=== PATIENT | male | born 1960 | race Caucasian/White ===

== ENCOUNTER 2018-09-16 21:51 | Emergency (ER) | payer OTHER ==
--- NOTE | 2018-09-16 22:56 | EDPHY ---
H & P Smoking Status: Never smoked Time Seen by Provider: 09/16/18 22:02 HPI/ROS: This patient noticed a fullness to his right popliteal region slight discomfort over the past 24 hr the prompted a visit to rule out DVT. He describes intermittent popliteal pain particularly when he flexes his knee. His recent history is notable for a right total hip replacement on September 04 without complications. He has a history of atrial fibrillation as well and takes baby aspirin but no other anticoagulation. He denies any other associated symptoms and came in with his by private vehicle for evaluation tonight. ROS: Constitutional: No fatigue. No fevers. HEENT: No complaints Pulmonary: No dyspnea or pleuritic pain Cardiovascular: No lightheadedness. No significant calf swelling to the affected leg. He does describe mild anterior right thigh swelling and discomfort in addition to the popliteal swelling GI: No complaints Integumentary: He has bruising to the right lower extremity postop but no other complaints 7 point review of symptoms is performed and otherwise negative with exception of pertinent positives and negatives listed in HPI and ROS (Jose Ramires) Physical Exam: Physical Exam Vital signs are normal. General: No acute distress Eyes: Pupils equal and react to light. Extraocular motions are intact. Lungs: Clear to auscultation bilaterally. No respiratory distress. Cardiac: Brisk capillary refill is intact throughout. Pulses are 2+ and symmetric in the affected extremity. Extremities: Atraumatic normal except for right lower extremity Right lower extremity: There is ecchymosis around the knee and thigh with minimal fullness to the right popliteal region. No calf swelling or tenderness is appreciated. Homans is negative. Skin: No rash or pallor. Neuro: Alert and oriented x3 with no sensorimotor deficits in the affected extremity. Initial differential diagnosis: Postop swelling, DVT, Boss cyst (Jose Ramires) Constitutional: Initial Vital Signs Temperature (C) 37.2 C 09/16/18 22:01 Heart Rate 74 09/16/18 22:01 Respiratory Rate 16 09/16/18 22:01 Blood Pressure 134/79 H 09/16/18 22:01 O2 Sat (%) 95 09/16/18 22:01 O2 Delivery Mode Room Air Allergies/Adverse Reactions: iodine [Iodine] Allergy (Verified 06/20/11 12:12) Home Medications: Medication Instructions Recorded Aspirin 09/16/18 MDM/Departure - MDM Imaging Results: Imaging Impressions Extremity Venous Study 09/16/18 22:13 Impression: No deep venous thrombosis right leg. Findings and recommendations discussed with Emergency Department physician, Dr. Roman at 23:43 hour, 09/16/2018. Final report concurs with initial preliminary interpretation. ED Course/Re-evaluation: Patient is sent for Doppler ultrasound to the radiology department. Study results are pending at 11:00 p.m.. I signed this patient over to Dr. Gayle stark, oncoming emergency physician at 11: 00 p.m.. She will follow up with Doppler ultrasound results and finalize disposition. (Jose Ramires) Care of this patient was turned over at shift change pending ultrasound results. The ultrasound was negative for DVT or bakers cyst and the patient was discharged home. (Saloni Roman) - Depart Disposition: Home, Routine, Self-Care Clinical Impression: Popliteal pain Condition: Good Instructions: Knee Pain (ED) Referrals: NONE *PRIMARY CARE P,. [Primary Care Provider] - As per Instructions
[2018-09-16 23:52] VITALS: BP 130/76
== END 2018-09-17 00:06 | disposition home or self-care (01) ==
LOC: CED 21:51
DX: M25.561 Pain in right knee (principal)
CPT/HCPCS: 93971-PO